=== PATIENT | female | born 1970 | race Caucasian/White ===

== ENCOUNTER 2021-12-10 21:42 | Emergency (ER) | payer MEDICAID ==
[~2021-12-10] VITALS: Ht 165.1 cm; Wt 65.9 kg
[2021-12-10 22:08] VITALS: TEMP 97.7
[2021-12-11 00:14] VITALS: BP 145/70; PULSE 76
== END 2021-12-11 00:14 | disposition home or self-care (01) ==
LOC: COL.ER 21:42
DX: M25.512 Pain in left shoulder (principal); F17.210 Nicotine dependence, cigarettes, uncomplicated; Z28.310 Unvaccinated for COVID-19; W18.30XA Fall on same level, unspecified, initial encounter